=== PATIENT | male | born 1980 | race African-American/Black ===

== ENCOUNTER 2016-11-06 17:14 | Emergency (ER) | payer BC ==
--- NOTE | 2016-11-06 17:47 | ER Document Report ---
ED Medical Screen (RME) - General Stated Complaint: STOMACH PAIN Mode of Arrival: Ambulatory Information source: Patient Notes: Patient complains of abdominal pain that started yesterday. Patient reports lower abdominal tenderness. No fever. No nausea, vomiting, or diarrhea. hx: None I have greeted and performed a rapid initial assessment of this patient. A comprehensive ED assessment and evaluation of the patient, analysis of test results and completion of the medical decision making process will be conducted by additional ED providers. TRAVEL OUTSIDE OF THE [place] IN LAST 30 DAYS: No - Related Data Allergies/Adverse Reactions: No Known Allergies Allergy (Verified 11/06/16 17:47) Past Medical History - Past Medical History Cardiac Medical History: Reports: Hx Hypertension Past Surgical History: Reports: Hx Abdominal Surgery - hernia repair as child - Immunizations Immunizations up to date: Yes Hx Diphtheria, Pertussis, Tetanus Vaccination: Yes Physical Exam - Vital signs Vitals: Temp Pulse Resp BP Pulse Ox 98.4 F 98 18 158/103 H 95 11/06/16 17:44 11/06/16 17:44 11/06/16 17:44 11/06/16 17:44 11/06/16 17:44 - Abdominal Tenderness: Tender - Lower abdomen Course - Vital Signs Vital signs: Temp Pulse Resp BP Pulse Ox 98.4 F 98 18 158/103 H 95 11/06/16 17:44 11/06/16 17:44 11/06/16 17:44 11/06/16 17:44 11/06/16 17:44
[2016-11-06 18:42] LABS: ABSOLUTE EOSINOPHILS # (AUTO) 0.1 10^3/uL (0.0-0.6); ABSOLUTE LYMPHOCYTES (AUTO) 2.4 10^3/uL (0.5-4.7); ABSOLUTE MONOCYTES (AUTO) 1.1 10^3/uL (0.1-1.4); ABSOLUTE NEUT (AUTO) 6.9 10^3/uL (1.7-8.2); BASOPHILS % (AUTO) 0.2 % (0-2); EOSINOPHILS % (AUTO) 0.7 % (0-6); HEMATOCRIT 43.7 % (37.9-51.0); HEMOGLOBIN 14.6 g/dL (13.5-17.0); HGB HCT DIFFERENCE 0.1; LYMPHOCYTES % (AUTO) 22.4 % (13-45); MEAN CORPUSCULAR HEMOGLOBIN 27.6 pg (27.0-33.4); MEAN CORPUSCULAR HGB CONC 33.3 g/dL (32.0-36.0); MEAN CORPUSCULAR VOLUME 83 fl (80-97); MONOCYTES % (AUTO) 10.9 % (3-13); RED BLOOD COUNT 5.28 10^6/uL (4.35-5.55); RED CELL DISTRIBUTION WIDTH 15.1 % (11.5-14.0); SEGMENTED NEUTROPHILS % (AUTO) 65.8 % (42-78); WHITE BLOOD COUNT 10.5 10^3/uL (4.0-10.5)
[2016-11-06 19:03] LABS: ALANINE AMINOTRANSFERASE 50 U/L (21-72); ALBUMIN 4.5 g/dL (3.5-5.0); ALKALINE PHOSPHATASE 115 U/L (38-126); ANION GAP 17 (5-19); ASPARTATE AMINO TRANSFERASE 24 U/L (17-59); BILIRUBIN,DIRECT 0.3 mg/dL (0.0-0.4); BILIRUBIN,TOTAL 1.8 mg/dL (0.2-1.3); BLOOD UREA NITROGEN 12 mg/dL (7-20); CALCIUM 9.3 mg/dL (8.4-10.2); CARBON DIOXIDE 29 mmol/L (22-30); CHLORIDE 97 mmol/L (98-107); CREATININE RESULT 0.99 mg/dL (0.52-1.25); GLUCOSE 123 mg/dL (75-110); LIPASE 45.4 U/L (23-300); SODIUM 142.7 mmol/L (137-145); TOTAL PROTEIN 7.8 g/dL (6.3-8.2)
[2016-11-06 19:04] LABS: APPEARANCE,URINE CLEAR; BILIRUBIN,URINE NEGATIVE (NEGATIVE); GLUCOSE, URINE NEGATIVE (NEGATIVE); KETONES,URINE NEGATIVE (NEGATIVE); LEUKOCYTE ESTERASE,URINE NEGATIVE (NEGATIVE); NITRITE,URINE NEGATIVE (NEGATIVE); PROTEIN,URINE 30 mg/dL (NEGATIVE); URINE SPECIFIC GRAVITY 1.019; UROBILINOGEN,URINE NEGATIVE mg/dL (<2.0)
[2016-11-06 19:15] LABS: POTASSIUM 2.9 mmol/L (3.6-5.0)
[2016-11-06] MEDS ORDERED: ONDANSETRON HCL INJ/PF 4 MG/2 ML SDV IV ONE (19:36)
[2016-11-06] MEDS ORDERED: MORPHINE SULFATE 10 MG/ML INJ IV ONE (19:36)
[2016-11-06] MEDS ORDERED: POTASSI CL 20 MEQ/50 ML RIDER 50 ML IV SCH (19:37)
--- NOTE | 2016-11-06 19:38 | ER Document Report ---
ED GI/ - General Chief Complaint: Abdominal Pain Stated Complaint: STOMACH PAIN Time seen by provider: 19:30 Mode of Arrival: Ambulatory Notes: Patient is a 36-year-old male that comes emergency department for chief complaint of lower abdominal pain that started last night, he states it is worsening and is constant, he states he notices it when he is walking and he can 't get rid of it. He states he had a loose bowel movement earlier today, nonbloody, had a normal bowel movement yesterday. He denies nausea or vomiting , denies fever. Past medical history of hernia repair as a child, states he is told he has low potassium and is supposed to be eating potassium supplements, denies any other medical history. TRAVEL OUTSIDE OF THE [place] IN LAST 30 DAYS: No - Related Data Allergies/Adverse Reactions: No Known Allergies Allergy (Verified 11/06/16 17:47) Past Medical History - General Information source: Patient - Social History Smoking Status: Never Smoker Chew tobacco use (# tins/day): No Frequency of alcohol use: None Drug Abuse: None Lives with: Family Family History: Reviewed & Not Pertinent Patient has suicidal ideation: No Patient has homicidal ideation: No - Past Medical History Cardiac Medical History: Reports: Hx Hypertension Renal/ Medical History: Denies: Hx Peritoneal Dialysis Past Surgical History: Reports: Hx Abdominal Surgery - hernia repair as child - Immunizations Immunizations up to date: Yes Hx Diphtheria, Pertussis, Tetanus Vaccination: Yes Review of Systems - Review of Systems Constitutional: No symptoms reported EENT: No symptoms reported Cardiovascular: No symptoms reported Respiratory: No symptoms reported Gastrointestinal: See HPI Genitourinary: No symptoms reported Male Genitourinary: No symptoms reported Musculoskeletal: No symptoms reported Skin: No symptoms reported Hematologic/Lymphatic: No symptoms reported Neurological/Psychological: No symptoms reported Physical Exam - Vital signs Vitals: Temp Pulse Resp BP Pulse Ox 99.4 F 98 20 158/103 H 95 11/06/16 17:42 11/06/16 17:42 11/06/16 17:42 11/06/16 17:42 11/06/16 17:42 Interpretation: Normal - General General appearance: Appears well, Alert In distress: None - HEENT Head: Normocephalic, Atraumatic Eyes: Normal Conjunctiva: Normal Extraocular movements intact: Yes Eyelashes: Normal Pupils: PERRL Sinus: Normal Nasal: Normal Mouth/Lips: Normal Mucous membranes: Normal Pharynx: Normal Neck: Normal - Respiratory Respiratory status: No respiratory distress Chest status: Nontender Breath sounds: Normal. No: Decreased air movement, Wheezing Chest palpation: Normal - Cardiovascular Rhythm: Regular. No: Tachycardia Heart sounds: Normal auscultation, S1 appreciated, S2 appreciated Murmur: No - Abdominal Inspection: Normal - Normal exam, slightly obese, no hernias or other abnormalities noted Distension: No distension Bowel sounds: Normal Tenderness: Tender - Patient is tender in the lower abdomen on both sides, somewhat worse in the right lower quadrant, no rigidity or rebound tenderness, upper abdomen is unremarkable - Back Back: Normal, Nontender - Extremities General upper extremity: Normal inspection, Nontender, Normal color, Normal ROM , Normal temperature General lower extremity: Normal inspection, Nontender, Normal color, Normal ROM , Normal temperature, Normal weight bearing. No: Mady's sign - Neurological Neuro grossly intact: Yes Cognition: Normal Orientation: AAOx4 [place] Coma Scale Eye Opening: Spontaneous Lisa Coma Scale Verbal: Oriented Lisa Coma Scale Motor: Obeys Commands [place] Coma Scale Total: 15 Speech: Normal Motor strength normal: LUE, RUE, LLE, RLE Sensory: Normal - Psychological Associated symptoms: Normal affect, Normal mood - Skin Skin Temperature: Warm Skin Moisture: Dry Skin Color: Normal Course - Re-evaluation Re-evalutation: Potassium is low at 2.9, magnesium is normal. Previous potassium 3.1. Patient states he has not been needing incision with potassium is does not really like it and he has not been taking a supplement. Patient does not yet know why he gets low potassium, states he plans to follow-up with primary care on this. Giving IV dose. Patient is tender in both the right and left lower quadrants, seems more tender on the right, CAT scan performed to rule out appendicitis, abscess, or other concerning emergent etiology. CT shows diverticulitis, no abscess, normal appendix, no other abnormalities except for left inguinal hernia which patient was informed about. Given Cipro, Flagyl, and extra dose of potassium, instructed to follow-up closely with primary care, discussed treatment and return precautions in detail, patient states satisfaction and agreement. Patient very well appearing on discharge. - Vital Signs Vital signs: Temp Pulse Resp BP Pulse Ox 98.7 F 91 14 143/86 H 95 11/06/16 20:57 03/24/17 23:43 11/06/16 23:43 11/06/16 23:43 11/06/16 23:43 - Laboratory Result Diagrams: 11/06/16 17:55 11/06/16 17:55 Laboratory results interpreted by me: 11/06/16 11/06/16 11/06/16 17:55 17:55 17:55 RDW 15.1 H Potassium 2.9 L* Chloride 97 L Glucose 123 H Total Bilirubin 1.8 H Urine Protein 30 H Urine Blood SMALL H Discharge - Discharge Clinical Impression: Lower abdominal pain, Hypokalemia Diverticulitis Qualifiers: Diverticulitis site: large intestine Diverticulitis bleeding: without bleeding Diverticulitis complication: without perforation or abscess Qualified Code(s): K57.32 - Diverticulitis of large intestine without perforation or abscess without bleeding Condition: Stable Disposition: HOME, SELF-CARE Additional Instructions: Please take the Cipro and Flagyl antibiotics as directed for diverticulitis infection. Follow-up closely with the primary care referral for a reevaluation in the next several days. Stick with clear fluid diet the first couple of days, take [place] if needed for pain. Return immediately for any concerning or worsening symptoms including bloody bowel movements, fever, severe pain, etc. Please increase your potassium intake and have this level rechecked with primary care. Your imaging also shows a left inguinal (groin) hernia, follow-up with surgical referral routinely to have this addressed. Diverticulitis You have been diagnosed as having diverticulitis. This is an inflammation of a small pouch attached to the colon, called a diverticulum. Many of these small pouches can form on the colon as you get older. They are often caused by constipation. When inflamed or infected, symptoms arise -- usually abdominal pain, constipation or diarrhea, fever, and blood in the stool. Severe diverticulitis may require hospitalization. More mild cases are usually treated with antibiotics and clear liquid diet. As you improve, a diet low in residue (one which forms little stool) is prescribed. When you are better, you should eat a high-fiber diet. Stool softeners ( like Metamucil) are usually recommended. Call the doctor or go to the hospital if there is increasing pain, vomiting , high fever, large amounts of blood passed, or if bowel movements cease. Prescriptions: Ciprofloxacin HCl [Cipro 500 mg Tablet] 500 mg PO BID #20 tablet Hydrocodone/Acetaminophen [[place] 5-325 mg Tablet] 1 - 2 tab PO ASDIR #15 tablet Metronidazole [Flagyl 500 mg Tablet] 500 mg PO TID #30 tablet Forms: Return to Work Referrals: SURYA TILLEY DO [NO LOCAL MD] - Follow up in 3-5 days DIEGO GOODSON MD [ACTIVE STAFF] - Follow up in 3-5 days [facility] [Provider Group] - Follow up as needed
[2016-11-06] MEDS ORDERED: POTASSI CL 20 MEQ/50 ML RIDER 50 ML IV ONE (19:52)
[2016-11-06] MEDS ORDERED: CIPROFLOXACIN HCL 500 MG TABLET PO ONE (22:42)
[2016-11-06] MEDS ORDERED: METRONIDAZOLE 500 MG TABLET PO ONE (22:42)
[2016-11-06] MEDS ORDERED: POTASSIUM CHLORIDE 10 MEQ TABLET.SA PO ONE (22:42)
[2016-11-06 23:55] VITALS: BP 143/86
== END 2016-11-06 23:55 | disposition home or self-care (01) ==
LOC: ER 17:14
DX: K57.32 Diverticulitis of large intestine without perforation or abscess without bleeding (principal); E87.6 Hypokalemia; R10.30 Lower abdominal pain, unspecified; R19.7 Diarrhea, unspecified
CPT/HCPCS: 99284; 96375; 96365; 96366; 36415; 83690; 83735; 85025; 80053; 81001; 74177; J2270; J2405; J3480

== ENCOUNTER 2020-08-20 03:36 | Emergency (ER) | payer BC ==
[2020-08-20] MEDS ORDERED: DEXAMETHASONE SOD PHOS INJ 10 MG/1 ML VIAL IV ONE (04:20)
[2020-08-20] MEDS ORDERED: CEFTRIAXONE INJ 1000 MG VIAL IV ONE (04:21)
[2020-08-20] MEDS ORDERED: FAMOTIDINE INJ/PF 20 MG/2 ML SDV IV ONE (04:21)
[2020-08-20] MEDS ORDERED: DIPHENHYDRAMINE HCL 50 MG/ML VIAL IV ONE (04:23)
[2020-08-20] MEDS ORDERED: LABETALOL HCL INJ 20 MG/4 ML DISP.SYRIN IV ONE ×2 (04:27→05:52)
--- NOTE | 2020-08-20 04:29 | ER Document Report ---
ED ENT - General Chief Complaint: Allergic Reaction Stated Complaint: SORE THROAT,SWOLLEN Time Seen by Provider: 08/20/20 04:20 Mode of Arrival: Ambulatory Information source: Patient Notes: 08/20/20 04:09 - ED Nursing Note by HARRY MCPHERSON Num: [id number] : 1980 Patient Age: [age] Y/O MALE, WITH NO PMH OR KNOWN ALLERGIES, PRESENTS WITH THICK TONGUE, THICK THROAT AND REPORTING DIFFICULTY BREATHING. VS WNL'S. 02 SATS WNL'S. PT DENIES ANY NEW MEDS, NEW DETERGENTS. Initialized on 08/20/20 04:09 - END OF NOTE MY NOTES 39-year-old black male arrives with acute onset of sore throat and inability to swallow for 24 hours. He also complains of pain to his anterior neck and tenderness on palpation with lymphadenopathy. Patient denies any prior history of similar problems. He denies any productive cough. He does admit to fever and chills. He denies any nuchal rigidity. He denies any skin lesions. He denies any chest pain or abdominal pain or diarrhea or constipation or extremity pain or swelling. TRAVEL OUTSIDE OF THE [place] IN LAST 30 DAYS: No - HPI Onset: This morning Onset/Duration: Persistent, Worse Severity: Severe Pain Level: 4 Context: Allergies. denies: Injury, Travel Location of pain: No: Ears, Face Associated symptoms: Face swelling, Fever, Jaw pain, Jaw swelling, Neck pain, Sore throat. denies: Chills, Congestion, Cough, Difficulty swallowing, Dizziness, Drooling, Foreign body, Hearing loss, Headache - Related Data Allergies/Adverse Reactions: No Known Allergies Allergy (Verified 08/20/20 04:05) Past Medical History - General Information source: Patient - Social History Smoking Status: Never Smoker Cigarette use (# per day): No Chew tobacco use (# tins/day): No Smoking Education Provided: No Frequency of alcohol use: Occasional Drug Abuse: None Lives with: Family Family History: Reviewed & Not Pertinent Patient has suicidal ideation: No Patient has homicidal ideation: No - Past Medical History Cardiac Medical History: Reports: Hx Hypertension Renal/ Medical History: Denies: Hx Peritoneal Dialysis Past Surgical History: Reports: Hx Abdominal Surgery - hernia repair as child - Immunizations Immunizations up to date: Yes Hx Diphtheria, Pertussis, Tetanus Vaccination: Yes Review of Systems - Review of Systems Constitutional: See HPI, Weakness EENT: See HPI, Throat pain, Throat swelling, Mouth pain Cardiovascular: See HPI, Palpitations, Heart racing Respiratory: No symptoms reported Gastrointestinal: No symptoms reported Genitourinary: No symptoms reported Male Genitourinary: No symptoms reported Musculoskeletal: No symptoms reported Skin: No symptoms reported Hematologic/Lymphatic: No symptoms reported Neurological/Psychological: No symptoms reported -: Yes All other systems reviewed and negative Physical Exam - Vital signs Vitals: Temp Pulse BP Pulse Ox 98.2 F 111 H 168/114 H 100 08/20/20 03:48 08/20/20 03:48 08/20/20 03:48 08/20/20 03:48 Interpretation: Normal - General General appearance: Appears well, Alert - HEENT Head: Normocephalic, Atraumatic Eyes: Normal Pupils: PERRL - Respiratory Respiratory status: No respiratory distress Chest status: Nontender Breath sounds: Normal Chest palpation: Normal - Cardiovascular Rhythm: Tachycardia Heart sounds: Normal auscultation Murmur: No - Abdominal Inspection: Normal Distension: No distension Bowel sounds: Normal Tenderness: Nontender Organomegaly: No organomegaly - Rectal Prostate: Other - deferred - Genitourinary Scrotum: Other - deferred - Back Back: Normal, Nontender - Extremities General upper extremity: Normal inspection, Nontender, Normal color, Normal ROM, Normal temperature General lower extremity: Normal inspection, Nontender, Normal color, Normal ROM, Normal temperature, Normal weight bearing. No: Mady's sign - Neurological Neuro grossly intact: Yes Cognition: Normal Orientation: AAOx4 [place] Coma Scale Eye Opening: Spontaneous [place] Coma Scale Verbal: Oriented [place] Coma Scale Motor: Obeys Commands Lisa Coma Scale Total: 15 Speech: Normal Motor strength normal: LUE, RUE, LLE, RLE Sensory: Normal - Psychological Associated symptoms: Normal affect, Normal mood - Skin Skin Temperature: Warm Skin Moisture: Dry Skin Color: Normal Course - Vital Signs Vital signs: Temp Pulse Resp BP Pulse Ox 98.6 F 111 H 22 H 169/120 H 96 08/20/20 06:00 08/20/20 03:48 08/20/20 06:02 08/20/20 06:02 08/20/20 06:02 - Laboratory Results Result Diagrams: 08/20/20 04:30 08/20/20 04:30 Laboratory Results Interpreted: 08/20/20 08/20/20 08/20/20 04:30 04:30 04:31 WBC 12.3 H Lymph % (Auto) 11.6 L Absolute Neuts (auto) 9.8 H Seg Neutrophils % 79.9 H Potassium 3.4 L Glucose 363 H POC Glucose 320 H Total Bilirubin 1.5 H Critical Laboratory Results Reviewed: Yes Attending or Supervising Physician who Reviewed Labs: SANJANA DUEÑAS JR - Radiology Results Radiology Results Interpreted: 08/20/20 06:15 Dr. Brewster radiologist read the CT as right maxillary sinusitis with no abscess identified and left mandibular premolar infection Critical Radiology Results Reviewed: Yes Attending or Supervising Physician who Reviewed Radiology: SANJANA DUEÑAS JR Discharge - Discharge Clinical Impression: Hyperglycemia, Dental abscess Pharyngitis Qualifiers: Pharyngitis/tonsillitis etiology: unspecified etiology Qualified Code(s): J02.9 - Acute pharyngitis, unspecified Hypertension Qualifiers: Hypertension type: unspecified Qualified Code(s): I10 - Essential (primary) hypertension Disposition: HOME, SELF-CARE Instructions: Cephalexin ([facility]) Additional Instructions: Follow-up with dentist of choice and with ear nose throat doctor Dr. Damon Luis; return to ER as needed and take medicines as directed encourage fluids and also take Magic mouthwash 4 times a day as needed. Prescriptions: Cephalexin Monohydrate [Keflex 500 mg Capsule] 500 mg PO BID #20 capsule Labetalol HCl 100 mg PO HSP #15 tablet Nystatin/Dexameth/Diphen [Magic Mouthwash ([facility] Formula) Susp] 5 ml PO QID #120 ml Forms: Return to Work
[2020-08-20 04:40] LABS: ABSOLUTE EOSINOPHILS # (AUTO) 0.1 10^3/uL (0.0-0.6); ABSOLUTE LYMPHOCYTES (AUTO) 1.4 10^3/uL (0.5-4.7); ABSOLUTE NEUT (AUTO) 9.8 10^3/uL (1.7-8.2); BASOPHILS % (AUTO) 0.3 % (0-2); EOSINOPHILS % (AUTO) 0.4 % (0-6); HEMOGLOBIN 14.6 g/dL (13.5-17.0); LYMPHOCYTES % (AUTO) 11.6 % (13-45); MEAN CORPUSCULAR VOLUME 80 fl (80-97); MONOCYTES % (AUTO) 7.8 % (3-13); PLATELET COUNT 171 10^3/uL (150-450); RED BLOOD COUNT 5.41 10^6/uL (4.35-5.55); RED CELL DISTRIBUTION WIDTH 13.8 % (11.5-14.0); SEGMENTED NEUTROPHILS % (AUTO) 79.9 % (42-78); TOTAL CELLS COUNTED % (AUTO) 100 %; WHITE BLOOD COUNT 12.3 10^3/uL (4.0-10.5)
[2020-08-20 04:57] LABS: ALBUMIN 4.3 g/dL (3.5-5.0); ALKALINE PHOSPHATASE 121 U/L (38-126); ANION GAP 12 (5-19); ASPARTATE AMINO TRANSFERASE 19 U/L (17-59); BILIRUBIN,DIRECT 0.2 mg/dL (0.0-0.4); BILIRUBIN,TOTAL 1.5 mg/dL (0.2-1.3); BLOOD UREA NITROGEN 10 mg/dL (7-20); CALCIUM 9.2 mg/dL (8.4-10.2); CARBON DIOXIDE 25 mmol/L (22-30); CHLORIDE 102 mmol/L (98-107); GLUCOSE 363 mg/dL (75-110); POTASSIUM 3.4 mmol/L (3.6-5.0); TOTAL PROTEIN 7.3 g/dL (6.3-8.2)
[2020-08-20] MEDS ORDERED: FLUCONAZOLE 400 MG/NS RTU 400 MG/200 ML RTUPB IV ONE (05:49)
[2020-08-20] MEDS ORDERED: NYSTATIN/DEXAMETH/DIPHEN SUSP 120 ML PO ONE ×2 (05:51→06:00)
--- NOTE | 2020-08-20 06:07 | RADIOLOGY REPORT (SQ) ---
EXAM: CT neck with intravenous contrast CLINICAL DATA: [address] TECHNICAL DATA: Axial CT imaging of the soft tissues of the neck were performed following the administration of intravenous contrast. followed by sagittal and coronal reconstructed images. The CT study is performed according to ALARA (as low as reasonably achievable) or ALARA/IMAGE GENTLY, with automatic adjustment of mA and/or kV according to patient size. Performed on: 08/20/2020 at 4:51 AM Comparisons: None. FINDINGS: The visualized portions of the brain and orbits are normal. The oral cavity, oropharynx and nasopharynx are normal. Some portions of the oral cavity and oropharynx are obscured by streak artifact related to the patient's dental hardware. The parapharyngeal fat planes are preserved. The hypopharynx is unremarkable. The epiglottis and aryepiglottic folds are normal. The vallecula and pyriform sinuses are grossly normal. The preepiglottic fat is preserved. The thyroid, cricoid and arytenoid cartilages are normal. The region of the false and true vocal cords is normal as is the anterior commissure. There is mild mucosal thickening of the right maxillary sinus. The mastoid air cells and middle ear cavities are clear. The parotid and submandibular glands are grossly within normal limits. No intrinsic mass lesions are seen. . The carotid sheaths are normal bilaterally. No definite pathologically enlarged lymph nodes are identified The thyroid gland is normal in size and configuration. The thoracic inlet is normal. The superior mediastinum and lung apices are normal. No acute osseous abnormalities are identified. There is a lucency surrounding the left mandibular anterior premolar which may be due to loosening or infection No focal soft tissue abnormalities are seen. No discrete abscess is identified. IMPRESSION: 1. Lucency surrounding the left mandibular anterior premolar which may be due to loosening or infection. 2. No discrete abscess or significant soft tissue swelling is identified. 3. Mild mucosal thickening of the right maxillary sinus.
[2020-08-20 07:07] VITALS: BP 155/112
== END 2020-08-20 07:07 | disposition home or self-care (01) ==
LOC: ER 03:36
DX: K04.7 Periapical abscess without sinus (principal); R73.9 Hyperglycemia, unspecified; I10 Essential (primary) hypertension; J02.9 Acute pharyngitis, unspecified; T78.40XA Allergy, unspecified, initial encounter; R53.1 Weakness; R00.2 Palpitations; Z20.822 Contact with and (suspected) exposure to COVID-19
CPT/HCPCS: 96376; 99285; 96375; 96365; 96367; 36415; 87040; 87880; 82962; 85025; 80053; 70491; U0003; J1450; J1200; J3490 ×2; J0696; S0028; J1100; C9803; 87635